=== PATIENT | male | born 1960 | race African-American/Black ===

== ENCOUNTER 2019-05-05 18:53 | Inpatient (IN) | payer MEDICAID ==
[~2019-05-05] VITALS: Ht 170.2 cm; Wt 119.3 kg
[~2019-05-05 18:53] MED LIST: ACET-3161 PO; AMLO5TAB4 PO; ATOR20TA PO; Aspirin PO; BENA20TA77 PO; CLON0.3T4 PO; COR6 PO; DUONEB3 ML HHN; FURO40TA5 PO; Furosemide PO; LEVVL SUBCUT; NIFE60TA77 PO
[2019-05-05] MEDS ORDERED: SODIUM CHLORIDE 0.9% 1,000 ML IV ONE (19:07)
[2019-05-05] MEDS ORDERED: ONDANSETRON HCL 4MG/2ML INJ IV STA (19:07)
[2019-05-05] MEDS ORDERED: CLONIDINE 0.2MG TABLET PO ONE (19:15)
[2019-05-05] MEDS ORDERED: HYDRALAZINE 20MG/ML VIAL IV ONE (21:15)
[2019-05-05 21:30] LABS: BASOPHILS % 0.4 % (0.0-2.0); EOSINOPHILS % 0.1 % (0.0-5.0); HEMATOCRIT. 42.2 % (42.0-52.0); LYMPHOCYTES % 7.3 % (20.0-50.0); MEAN CORPUSCULAR HEMOGLOBIN 27.9 pg (28.0-32.0); MEAN CORPUSCULAR VOLUME 83.9 fL (80.0-94.0); MEAN PLATELET VOLUME 8.8 fl (7.4-10.4); MONOCYTES % 2.5 % (2.0-8.0); NEUTROPHILS % 89.7 % (40.0-76.0); PLATELET 259 x1000/uL (130-400); RED BLOOD CELL COUNT 5.03 mill/uL (4.7-6.1); RED CELL DISTRIBUTION WIDTH 14.8 % (11.6-14.6)
[2019-05-05 21:32] LABS: BG BASE EXCESS -7.6 mmol/L (-2.0-2.0); BG CARBOXYHEMOGLOBIN 0.8 % (0.5-1.5); BG DEOXYHEMOGLOBIN 4.7 % (0.0-5.0); BG FRACTION INSPIRED OXYGEN 21; BG HCO3 ACT 16.6 mmol/L (22.0-26.0); BG METHEMOGLOBIN 0.3 % (0.0-1.5); BG OXYGEN SATURATION 95.2 % (92.0-98.5); BG OXYHEMOGLOBIN 94.2 % (94.0-97.0); BG PCO2 30.2 mmHg (35.0-45.0); BG PH 7.357 (7.350-7.450); BG PO2 80.2 mmHg (75.0-100.0); BG SAMPLE SITE RIGHT RADIAL; BG TOTAL HEMOGLOBIN 14.1 g/dL (12.0-18.0); BG VENT MODE ROOM AIR
[2019-05-05 21:35] LABS: CHLORIDE 108 mEq/L (98-107)
[2019-05-05] MEDS ORDERED: NICARDIPINE 40MG/200ML PREMIX 200 ML IV PRN (22:15)
[2019-05-05] MEDS ORDERED: SODIUM CHLORIDE 0.9% 1,000 ML IV NR (22:15)
[2019-05-05] MEDS ORDERED: NA PHOS,M-B/NA PHOS,DI-BA ENEMA 118ML PR PRN (22:30)
[2019-05-05] MEDS ORDERED: ACETAMINOPHEN 325MG TABLET PO PRN (22:30)
[2019-05-05] MEDS ORDERED: GUAIFENESIN 200MG/10ML SUGAR FREE UDC PO PRN (22:30)
[2019-05-05] MEDS ORDERED: ACETAMINOPHEN 650MG SUPP PR PRN (22:30)
[2019-05-05] MEDS ORDERED: MAGNESIUM/ALUMINUM HYDROXIDE/SIMETHICONE 30ML UDC PO PRN (22:30)
[2019-05-05] MEDS ORDERED: DIPHENHYDRAMINE 50MG/ML VIAL IV PRN (22:30)
[2019-05-05] MEDS ORDERED: NICARDIPINE 50 MG in SODIUM CHLORIDE 0.9% 230 ML IV PRN (22:30)
[2019-05-05] MEDS ORDERED: DOCUSATE SODIUM 100MG CAPSULE PO PRN (22:30)
[2019-05-05] MEDS ORDERED: DEXTROSE 50% WATER 50ML SYRINGE IV PRN (22:30)
[2019-05-05] MEDS ORDERED: ACETAMINOPHEN 650MG/20.3ML UDC GT PRN (22:30)
[2019-05-05] MEDS ORDERED: IPRATROPIUM/ALBUTEROL 0.5-3(2.5)MG/3ML NEB INH PRN (22:30)
[2019-05-06] VITALS (72 sets, daily range): BP systolic 101–179; BP diastolic 45–110
[2019-05-06] MEDS ORDERED: METOCLOPRAMIDE HCL 10MG/2ML VIAL IV NR ×2 (00:45→06:00)
[2019-05-06] MEDS ORDERED: INSULIN LISPRO 100 UNITS/ML SUBCUT NR (00:45)
[2019-05-06] MEDS: MORPHINE SULFATE 2 MG/ML CPJ (NOT FOR IM USE) IV PRN ×3 (03:53→22:26)
[2019-05-06] MEDS: ONDANSETRON HCL 4MG/2ML INJ IV PRN ×2 (05:20→11:18)
[2019-05-06 05:31] LABS: CHLORIDE 111 mEq/L (98-107)
[2019-05-06 05:36] LABS: HEMATOCRIT. 40.1 % (42.0-52.0); HEMOGLOBIN. 13.4 g/dL (14.0-18.0); MEAN CORPUSCULAR VOLUME 83.6 fL (80.0-94.0); MEAN PLATELET VOLUME 8.7 fl (7.4-10.4); PLATELET 283 x1000/uL (130-400)
[2019-05-06 05:41] LABS: LDL CHOLESTEROL 152 mg/dL (5-100)
[2019-05-06 05:42] LABS: CREATINE KINASE 151 IU/L (39-308); HDL CHOLESTEROL 61 mg/dL (40-59)
[2019-05-06] MEDS: SODIUM CHLORIDE 0.9% INJ 3ML FLUSH IVF SCH (06:00)
[2019-05-06 06:16] LABS: PLATELET ESTIMATE NORMAL
[2019-05-06 06:53] LABS: CLARITY URINE CLEAR (CLEAR); COLOR URINE YELLOW (YELLOW); KETONES URINE 1+ (NEGATIVE); LEUKOCYTE ESTERASE URINE NEGATIVE (NEGATIVE); NITRITE URINE NEGATIVE (NEGATIVE); OCCULT BLOOD URINE 1+ (NEGATIVE); PROTEIN URINE 4+ (NEGATIVE); SPECIFIC GRAVITY URINE 1.016 (1.005-1.030); UROBILINOGEN URINE 0.2 E.U./dL (0.2-1.0)
[2019-05-06] MEDS: BLOOD SUGAR DIAGNOSTIC STRIP TEST SCH ×4 (08:06→21:13)
[2019-05-06] MEDS ORDERED: FAMOTIDINE 20MG/2ML VIAL IV SCH (09:00)
[2019-05-06] MEDS: NICARDIPINE 50 MG in SODIUM CHLORIDE 0.9% 230 ML IV PRN ×4 (09:02→21:14)
[2019-05-06] MEDS ORDERED: AMLODIPINE 10MG TABLET PO SCH (10:00)
[2019-05-06] MEDS ORDERED: HYDRALAZINE HCL 50MG TABLET PO SCH (10:00)
[2019-05-06] MEDS: FAMOTIDINE 20MG/2ML VIAL IV SCH ×2 (10:12→20:54)
[2019-05-06] MEDS: INSULIN LISPRO 100 UNITS/ML SUBCUT SCH ×5 (11:19→21:00)
[2019-05-06] MEDS: METOCLOPRAMIDE HCL 10MG/2ML VIAL IV SCH ×2 (11:40→18:30)
[2019-05-06] MEDS ORDERED: CLONIDINE 0.1MG TABLET PO SCH (14:00)
[2019-05-06] MEDS: CLONIDINE 0.2MG TABLET PO SCH ×2 (14:13→22:30)
[2019-05-06] MEDS ORDERED: DEXTROSE 50% WATER 50ML SYRINGE IV PRN (15:30)
[2019-05-06 16:28] LABS: *AMPHETAMINES SCREEN URINE NEGATIVE (NEGATIVE); *BARBITURATES SCREEN URINE NEGATIVE (NEGATIVE); *BENZODIAZEPINES SCREEN URINE NEGATIVE (NEGATIVE); CANNABINOID URINE SCREEN NEGATIVE (NEGATIVE); PHENCYCLIDINE URINE SCREEN NEGATIVE (NEGATIVE)
[2019-05-06 16:30] LABS: *COCAINE SCREEN URINE NEGATIVE (NEGATIVE); METHADONE URINE SCREEN NEGATIVE (NEGATIVE); OPIATES URINE SCREEN PRESUMTIVE POSITIVE (NEGATIVE)
[2019-05-06] MEDS ORDERED: BLOOD SUGAR DIAGNOSTIC STRIP TEST SCH (16:30)
[2019-05-06] MEDS: INS NPH/REG HM 70-30 100 UNITS/ML 10ML VIAL (HUMULIN 70-30) SUBCUT SCH (18:29)
[2019-05-06 20:45] LABS: CREATINE KINASE MB FRACTION 4.5 ng/mL (0.5-3.6)
[2019-05-06] MEDS: ATORVASTATIN CALCIUM 40MG TABLET PO SCH (20:55)
[2019-05-06] MEDS: CARVEDILOL 6.25 MG TABLET PO SCH (20:55)
[2019-05-06] MEDS ORDERED: NIFEDIPINE XL 60MG TAB PO SCH (21:00)
[2019-05-06] MEDS ORDERED: METOPROLOL TARTRATE 50MG TABLET PO SCH (21:00)
[2019-05-07] VITALS (55 sets, daily range): BP systolic 92–166; BP diastolic 24–93
[2019-05-07] MEDS: METOCLOPRAMIDE HCL 10MG/2ML VIAL IV SCH ×5 (01:09→23:59)
[2019-05-07] MEDS: NICARDIPINE 50 MG in SODIUM CHLORIDE 0.9% 230 ML IV PRN (03:10)
[2019-05-07 05:28] LABS: BASOPHILS % 0.5 % (0.0-2.0); EOSINOPHILS % 0.9 % (0.0-5.0); HEMATOCRIT. 34.1 % (42.0-52.0); HEMOGLOBIN. 11.5 g/dL (14.0-18.0); LYMPHOCYTES % 21.6 % (20.0-50.0); MEAN CORPUSCULAR HEMOGLOBIN 28.1 pg (28.0-32.0); MEAN CORPUSCULAR VOLUME 83.7 fL (80.0-94.0); MEAN PLATELET VOLUME 8.6 fl (7.4-10.4); MONOCYTES % 7.6 % (2.0-8.0); NEUTROPHILS % 69.4 % (40.0-76.0); PLATELET 281 x1000/uL (130-400); RED BLOOD CELL COUNT 4.08 mill/uL (4.7-6.1); RED CELL DISTRIBUTION WIDTH 14.7 % (11.6-14.6)
[2019-05-07] MEDS: CLONIDINE 0.2MG TABLET PO SCH (06:00)
[2019-05-07 06:01] LABS: PHOSPHORUS 3.1 mg/dL (2.5-4.9)
[2019-05-07 06:13] LABS: VITAMIN B12 SERUM 595 pg/mL (211-911)
[2019-05-07] MEDS: BLOOD SUGAR DIAGNOSTIC STRIP TEST SCH ×4 (06:20→20:53)
[2019-05-07] MEDS: INSULIN LISPRO 100 UNITS/ML SUBCUT SCH ×4 (06:20→20:53)
[2019-05-07 07:23] LABS: HEPATITIS B SURFACE ANTIGEN NEGATIVE
[2019-05-07 07:53] LABS: HEPATITIS A AB IGM NEGATIVE (NEGATIVE)
[2019-05-07] MEDS ORDERED: SODIUM CHLORIDE 0.45% 1,000 ML IV SCH (08:45)
[2019-05-07] MEDS: INS NPH/REG HM 70-30 100 UNITS/ML 10ML VIAL (HUMULIN 70-30) SUBCUT SCH ×2 (08:52→18:25)
[2019-05-07] MEDS: CARVEDILOL 6.25 MG TABLET PO SCH ×2 (09:00→20:52)
[2019-05-07] MEDS: FAMOTIDINE 20MG/2ML VIAL IV SCH (09:57)
[2019-05-07] MEDS: MORPHINE SULFATE 2 MG/ML CPJ (NOT FOR IM USE) IV PRN (10:12)
[2019-05-07] MEDS: SODIUM CHLORIDE 0.9% 1,000 ML IV SCH ×2 (11:47→23:59)
[2019-05-07] MEDS: SODIUM CHLORIDE 0.9% INJ 3ML FLUSH IVF SCH ×3 (14:03→20:53)
[2019-05-07] MEDS: HYDROCODONE/ACETAMINOPHEN 5/325MG TABLET PO PRN ×2 (15:52→20:57)
[2019-05-07] MEDS: ONDANSETRON HCL 4MG/2ML INJ IV PRN (17:13)
[2019-05-07] MEDS: CLONIDINE 0.1MG TABLET PO PRN (20:52)
[2019-05-07] MEDS: NIFEDIPINE XL 30MG TAB PO SCH (20:52)
[2019-05-07] MEDS: ATORVASTATIN CALCIUM 40MG TABLET PO SCH (20:52)
[2019-05-08] VITALS (7 sets, daily range): BP systolic 113–180; BP diastolic 64–82
[2019-05-08] MEDS: BLOOD SUGAR DIAGNOSTIC STRIP TEST SCH ×4 (04:56→21:00)
[2019-05-08] MEDS: METOCLOPRAMIDE HCL 10MG/2ML VIAL IV SCH ×3 (04:56→18:10)
[2019-05-08] MEDS: SODIUM CHLORIDE 0.9% INJ 3ML FLUSH IVF SCH ×3 (04:56→21:38)
[2019-05-08] MEDS: CLONIDINE 0.1MG TABLET PO PRN (05:14)
[2019-05-08 06:46] LABS: BASOPHILS % 0.5 % (0.0-2.0); EOSINOPHILS % 0.9 % (0.0-5.0); HEMATOCRIT. 36.8 % (42.0-52.0); HEMOGLOBIN. 12.5 g/dL (14.0-18.0); LYMPHOCYTES % 19.1 % (20.0-50.0); MEAN CORPUSCULAR HEMOGLOBIN 28.3 pg (28.0-32.0); MEAN CORPUSCULAR VOLUME 83.2 fL (80.0-94.0); MEAN PLATELET VOLUME 8.9 fl (7.4-10.4); MONOCYTES % 5.7 % (2.0-8.0); NEUTROPHILS % 73.8 % (40.0-76.0); PLATELET 310 x1000/uL (130-400); RED BLOOD CELL COUNT 4.43 mill/uL (4.7-6.1); RED CELL DISTRIBUTION WIDTH 14.5 % (11.6-14.6)
[2019-05-08 06:52] LABS: CHLORIDE 111 mEq/L (98-107)
[2019-05-08 07:11] LABS: PHOSPHORUS 3.5 mg/dL (2.5-4.9)
[2019-05-08] MEDS: INSULIN LISPRO 100 UNITS/ML SUBCUT SCH ×4 (08:06→21:00)
[2019-05-08] MEDS: INS NPH/REG HM 70-30 100 UNITS/ML 10ML VIAL (HUMULIN 70-30) SUBCUT SCH ×2 (08:07→18:12)
[2019-05-08 09:08] LABS: A/G RATIO 1.1 (0.7-1.7); ALBUMIN 2.8 g/dL (2.9-4.4); ALPHA-1-GLOBULIN 0.2 g/dL (0.0-0.4); ALPHA-2-GLOBULIN 0.7 g/dL (0.4-1.0); BETA GLOBULIN 0.8 g/dL (0.7-1.3); GAMMA GLOBULINS 0.9 g/dL (0.4-1.8); GLOBULIN TOTAL 2.6 g/dL (2.2-3.9); IMMUNOGLOBULIN A 272 mg/dL (90-386); IMMUNOGLOBULIN G 1027 mg/dL (700-1600); IMMUNOGLOBULIN M 55 mg/dL (20-172); M-SPIKE Not Observed g/dL (Not Observed); TOTAL PROTEIN SERUM 5.4 g/dL (6.0-8.5)
[2019-05-08] MEDS ORDERED: LIDOCAINE HCL 1% 20ML VIAL (Pyxis) INJ ONE (09:28)
[2019-05-08] MEDS: FAMOTIDINE 20MG/2ML VIAL IV SCH (11:00)
[2019-05-08] MEDS: CARVEDILOL 6.25 MG TABLET PO SCH (11:00)
[2019-05-08] MEDS ORDERED: CARVEDILOL 6.25 MG TABLET PO NR (11:00)
[2019-05-08] MEDS: SODIUM CHLORIDE 0.45% 1,000 ML IV SCH (13:37)
[2019-05-08] MEDS: HYDROCODONE/ACETAMINOPHEN 5/325MG TABLET PO PRN ×2 (13:49→20:38)
[2019-05-08] MEDS: ATORVASTATIN CALCIUM 40MG TABLET PO SCH (20:39)
[2019-05-08] MEDS: CARVEDILOL 12.5MG TABLET PO SCH (20:39)
[2019-05-08] MEDS: NIFEDIPINE XL 30MG TAB PO SCH (20:39)
[2019-05-08] MEDS: MORPHINE SULFATE 2 MG/ML CPJ (NOT FOR IM USE) IV PRN (22:19)
[2019-05-09] VITALS (7 sets, daily range): BP systolic 109–197; BP diastolic 64–92
[2019-05-09] MEDS ORDERED: INS7030 SUBCUT (01:05)
[2019-05-09] MEDS: METOCLOPRAMIDE HCL 10MG/2ML VIAL IV SCH ×2 (01:23→06:08)
[2019-05-09] MEDS: SODIUM CHLORIDE 0.45% 1,000 ML IV SCH (01:27)
[2019-05-09 05:17] LABS: ALBUMIN URINE 68.4 % (.); ALPHA-1-GLOBULIN URINE 1.4 % (.); ALPHA-2-GLOBULIN URINE 4.1 % (.); BETA GLOBULIN URINE 11.8 % (.); GAMMA GLOBULIN URINE 14.2 % (.)
[2019-05-09] MEDS: SODIUM CHLORIDE 0.9% INJ 3ML FLUSH IVF SCH (06:08)
[2019-05-09] MEDS: BLOOD SUGAR DIAGNOSTIC STRIP TEST SCH ×2 (06:08→12:14)
[2019-05-09] MEDS: INSULIN LISPRO 100 UNITS/ML SUBCUT SCH ×2 (06:09→12:29)
[2019-05-09] MEDS: CLONIDINE 0.1MG TABLET PO PRN (06:18)
[2019-05-09 06:43] LABS: BASOPHILS % 0.6 % (0.0-2.0); EOSINOPHILS % 1.5 % (0.0-5.0); HEMATOCRIT. 38.6 % (42.0-52.0); HEMOGLOBIN. 13.2 g/dL (14.0-18.0); LYMPHOCYTES % 22.7 % (20.0-50.0); MEAN CORPUSCULAR HEMOGLOBIN 28.5 pg (28.0-32.0); MEAN CORPUSCULAR VOLUME 83.3 fL (80.0-94.0); MEAN PLATELET VOLUME 8.8 fl (7.4-10.4); MONOCYTES % 7.5 % (2.0-8.0); NEUTROPHILS % 67.7 % (40.0-76.0); PLATELET 306 x1000/uL (130-400); RED BLOOD CELL COUNT 4.64 mill/uL (4.7-6.1); RED CELL DISTRIBUTION WIDTH 14.5 % (11.6-14.6)
[2019-05-09] MEDS: CARVEDILOL 12.5MG TABLET PO SCH (08:52)
[2019-05-09] MEDS ORDERED: NIFEDIPINE XL 60MG TAB PO SCH (09:00)
[2019-05-09] MEDS ORDERED: FAMOTIDINE 20MG TABLET PO SCH (09:00)
[2019-05-09] MEDS ORDERED: INS NPH/REG HM 70-30 100 UNITS/ML 10ML VIAL (HUMULIN 70-30) SUBCUT SCH ×2 (09:30→17:00)
[2019-05-09] MEDS: HYDROCODONE/ACETAMINOPHEN 5/325MG TABLET PO PRN (12:26)
[2019-05-09] MEDS ORDERED: METOCLOPRAMIDE HCL 5MG TABLET PO SCH (12:40)
[2019-05-09] MEDS ORDERED: LIP40 PO (12:48)
[2019-05-09] MEDS ORDERED: NIFE60TA64 PO (12:48)
[2019-05-09] MEDS ORDERED: FAMO20TA8 PO (12:48)
[2019-05-09] MEDS ORDERED: COR12 PO (12:48)
== END 2019-05-09 16:15 | disposition home or self-care (01) | DRG 199 ==
LOC: ER 18:53 → MICUNO 22:26 → EDBEDREQTM 22:29 → EDBEDREQSVC 22:29 → EDBEDREQ 22:29 → ENRESERV 05-06 07:42 → MICUNO 05-06 08:15 → 7WST 05-07 13:56
PROVIDERS: ADMIT Family Medicine; ATTEND Family Medicine
PROC: 05H633Z Insertion of Infusion Device into Left Subclavian Vein, Percutaneous Approach (ICD-10-PCS; principal; 2019-05-08)
PROC: B547ZZA Ultrasonography of Left Subclavian Vein, Guidance (ICD-10-PCS; 2019-05-08)
PROC: B517ZZA Fluoroscopy of Left Subclavian Vein, Guidance (ICD-10-PCS; 2019-05-08)
PROC: B518ZZA Fluoroscopy of Superior Vena Cava, Guidance (ICD-10-PCS; 2019-05-08)
DX: I16.1 Hypertensive emergency (principal); E11.00 Type 2 diabetes mellitus with hyperosmolarity without nonketotic hyperglycemic-hyperosmolar coma (NKHHC); I67.4 Hypertensive encephalopathy; N17.9 Acute kidney failure, unspecified; E11.22 Type 2 diabetes mellitus with diabetic chronic kidney disease; N18.3 Chronic kidney disease, stage 3 (moderate); E11.40 Type 2 diabetes mellitus with diabetic neuropathy, unspecified; E11.319 Type 2 diabetes mellitus with unspecified diabetic retinopathy without macular edema; I13.10 Hypertensive heart and chronic kidney disease without heart failure, with stage 1 through stage 4 chronic kidney disease, or unspecified chronic kidney disease; E78.5 Hyperlipidemia, unspecified; H40.9 Unspecified glaucoma; E87.2 Acidosis; Z79.4 Long term (current) use of insulin; H42 Glaucoma in diseases classified elsewhere; E11.65 Type 2 diabetes mellitus with hyperglycemia; E11.39 Type 2 diabetes mellitus with other diabetic ophthalmic complication; H54.61 Unqualified visual loss, right eye, normal vision left eye; E66.9 Obesity, unspecified; Z89.511 Acquired absence of right leg below knee; Z89.512 Acquired absence of left leg below knee; Z86.73 Personal history of transient ischemic attack (TIA), and cerebral infarction without residual deficits; Z79.82 Long term (current) use of aspirin; Z79.899 Other long term (current) drug therapy; Z82.49 Family history of ischemic heart disease and other diseases of the circulatory system; Z83.3 Family history of diabetes mellitus; Z68.41 Body mass index [BMI] 40.0-44.9, adult
CPT/HCPCS: 36415; 36569; 36573; 36600; 70551; 71045; 76770; 80048; 80061; 80305; 82375; 82550; 82553; 82570; 82607; 82784; 82805; 82962; 83605; 83735; 83880; 84100; 84155; 84156; 84165; 84166; 84484; 86334; 86705; 86709; 86803; 87340; 93005; 93306; 95816; 96374; 96375; 97162; 99291; C1725; C1769; C1892; J0360; J1815; J2270; J2405; J2765; J3490; J7030; J7050; J8597